=== PATIENT | female | born 1950 | race Caucasian/White ===

== ENCOUNTER → 2017-11-22 | Outpatient (CLI) | payer OTHER ==
[~2017-11-22] MED LIST: AZITTAB PO; HYCT PO
--- NOTE | 2017-11-22 16:05 | DIAGNOSTIC IMAGING REPORT ---
CHEST 2 VIEWS ROUTINE CLINICAL HISTORY: J18.9 PNEUMONIA, COUGH. RALES. COMPARISON STUDY: 07/28/2006 FINDINGS: The cardiac and mediastinal contours are normal. There is no evidence of focal pulmonary consolidation. There is no evidence of failure. No pleural effusions are visualized.[ IMPRESSION: No active disease in the chest. Electronically signed by: Rodríguez Buck M.D. 11/22/2017 4:04 PM Dictated Date/Time: 11/22/2017 4:04 PM
== END | disposition home or self-care (01) ==
LOC: C.RAD1850 15:36
PROVIDERS: ATTEND Physician Assistant
DX: J18.9 Pneumonia, unspecified organism (principal)

== ENCOUNTER 2020-08-02 19:48 | Inpatient (IN) ==
[2020-08-02] MEDS ORDERED: ONDANSETRON INJ 2 MG/ML 2 ML VIAL IV STA (19:58)
[2020-08-02] MEDS ORDERED: ACETAMINOPHEN 1000 MG/100 ML IV IV STA (19:58)
[2020-08-02] MEDS ORDERED: FAMOTIDINE 20MG/5ML IV PUSH IV STA (19:58)
[2020-08-02] MEDS ORDERED: MoRPHine SULFATE 2 MG/ML CARP IV PRN (19:58)
[2020-08-02] MEDS ORDERED: SODIUM CHLORIDE 0.9% 1000ML 1,000 ML IV SCH (20:00)
--- NOTE | 2020-08-02 20:04 | Emergency Department Note ---
Impression & Plan Precordial chest pain, RUQ abdominal pain, Acute cholecystitis, Leukocytosis ED Provider Note NAME: SANDRA WOODARD AGE: 70 SEX: F : 1950 ARRIVES VIA: Walk-In INFORMANT: [Patient] ED PROVIDER(S): [Pipo Palomino MD] CHIEF COMPLAINT: Chest pain HISTORY OF PRESENT ILLNESS: The patient is a 70-year-old female presents to the ED with chest pain that has been ongoing for almost 24 hours. The patient states the pain started as what she thought was reflux but has switched now to something she is not familiar with. The patient states the pain was initially burning but now it is more sharp. The pain is constant but there has been some come and go nature to the severity. The pain is an 8/10 at its worst. The pain does radiate to her back between her shoulder blades. She has had nausea and vomiting and some sweating. No shortness of breath. Patient tried to eat today but really had no appetite, she is not convinced eating made things worse. The patient does use Tums intermittently for heartburn, she has never had an episode like this before. She has no history of coronary disease. No history of known gallbladder disease. REVIEW OF SYSTEMS: See HPI for pertinent positives and negatives. A total of ten systems were rev iewed and were otherwise negative. PMHx/PSHx: See Below SOCIAL HISTORY: See Below. PHYSICAL EXAM: GENERAL: Patient is in no acute distress. HEENT: No acute trauma, normocephalic atraumatic, mucous membranes moist, no nasal congestion, no scleral icterus. NECK: No stridor, no adenopathy, no meningismus, trachea is midline. LUNGS: Clear to auscultation bilaterally, no wheeze, no rhonchi, breath sounds equal. HEART: 2/6 systolic murmur, mildly tachycardic, regular rhythm. ABDOMEN: Soft, moderately tender in the right upper quadrant, bowel sounds positive, no hernias, no peritonitis. EXTREMITIES: No cyanosis or edema, full range of motion of all the joints without pain or difficulty, no signs for acute trauma. NEUROLOGIC: Oriented x 3, no acute motor or sensory deficits, no focal weakness. SKIN: No rash, no jaundice, no diaphoresis. DIFFERENTIAL DIAGNOSIS: Cardiac ischemia, aortic dissection, pulmonary embolism, pneumothorax, pneumonia, pericarditis, myocarditis, esophageal rupture, GERD, biliary colic, cholecystitis, pancreatitis, musculoskeletal, as well as other pathologies. EMERGENCY DEPARTMENT COURSE/PROCEDURES: ECG: Indication was chest pain. The ECG shows a sinus tachycardia with a rate of 104. There is no ST elevation, no PVCs. The QTc is 478. A potential old septal infarct was noted. Continuous Cardiac Monitoring: An order was placed for continuous cardiac monitoring. The monitor shows a rate of 102 with sinus tachycardia. MEDICAL DECISION MAKING: There is a moderate leukocytosis at 18,000, this could be consistent with infection or just her pain. Hemoglobin was actually high at 17. There was a normal platelet count. No coagulopathy. No significant electrolyte abnormality or kidney failure. No evidence for liver enzyme elevation. No evidence for pancreatitis. ECG showed a sinus tachycardia, no acute ischemic change. Cardiac enzyme testing x1 was not consistent with acute cardiac injury. Chest film not show pneumonia or pneumothorax. There was no free air. Gallbladder ultrasound showed evidence for acute cholecystitis. Gallstones were present. The common bile duct was mildly elevated. On exam, the patient was quite tender in the right upper quadrant. She was not febrile, she was nontoxic. Patient received IV saline, 1 L. She was given IV Zofran, IV morphine, IV Pepcid and IV Tylenol. Patient received a dose of IV Zosyn. The patient has acute cholecystitis. I do think this explains her discomfort. Hospitalization is warranted. I did speak with the on-call surgeon who recommended a medical admission. I spoke to the patient at length about her findings, I talked with case management. The on-call hospitalist was consulted. Past Med/Surg History Medical History GERD (gastroesophageal reflux disease) Social History Smoking Status: Never smoker Feels Safe at Home: Yes Allergies Allergies Allergy/AdvReac Type Severity Reaction Status Date / Time No Known Allergies Allergy Mild Unverified 08/02/20 20:44 Home Meds Home Medications Medication Instructions Recorded Confirmed No Known Home Medications 08/02/20 08/02/20 Results & Data (ED) Vital Signs Vital Signs - 24 hr 08/02/20 19:49 08/02/20 21:29 08/02/20 23:00 Temperature 36.8 C Temperature Source Oral Pulse Rate 108 H Pulse Rate [Apical] 93 H 94 H Pulse Rhythm [Apical] Regular Respiratory Rate 18 16 16 Respiratory Effort / Characteristics Non-Labored Spontaneous Respiratory Depth Normal Normal Blood Pressure 193/89 H Blood Pressure [Left Arm] 144/96 H 144/96 H Blood Pressure Mean 123 Blood Pressure Mean [Left Arm] 112 112 Pulse Oximetry 99 97 97 Oxygen Delivery Method Room Air Room Air Sepsis Recent Fever Within 48 Hours No Sepsis New/Unexplained Change in Mental Status No Sepsis Action Taken by Nursing No Action Required Home Medications Current Medication List: was personally reviewed by me Laboratory Data Attestation: I reviewed the patient's lab results. Result diagrams: 08/02/20 20:10 08/02/20 20:10 Lab Results 08/02/20 08/02/20 08/02/20 Range/Units 20:10 20:10 20:10 WBC 18.14 H (4.8-10.8) K/uL RBC 4.87 (4.2-5.4) M/uL Hgb 17.0 H (12.0-16.0) g/dL Hct 47.8 H (37-47) % MCV 98.2 (80-100) fL MCH 34.9 H (25-34) pg MCHC 35.6 (32-36) g/dL RDW Std Deviation 47.3 H (36.4-46.3) fL RDW Coeff of Wendy 13.1 (11.5-14.5) % Plt Count 342 (130-400) K/uL MPV 9.1 (7.4-10.4) fL Immature Gran % (Auto) 0.2 % Neut % (Auto) 84.6 % Lymph % (Auto) 7.6 % Bosque % (Auto) 7.4 % Eos % (Auto) 0.1 % Baso % (Auto) 0.1 % Neut # (Auto) 15.34 H (1.4-6.5) K/uL Lymph # (Auto) 1.38 (1.2-3.4) K/uL Bosque # (Auto) 1.35 H (0.11-0.59) K/uL Eos # (Auto) 0.02 (0-0.5) K/uL Baso # (Auto) 0.01 (0-0.2) K/uL Immature Gran # (Auto) 0.04 H (0.00-0.02) K/uL PT 10.4 (9.0-12.0) Seconds INR 1.0 (0.9-1.1) APTT 26.7 (21.0-31.0) Seconds PTT Ratio 1.0 Sodium 138 (136-145) mmol/L Potassium 3.5 (3.5-5.1) mmol/L Chloride 103 (98-107) mmol/L Carbon Dioxide 25 (21-32) mmol/L Anion Gap 9.0 (3-11) BUN 13 (7-18) mg/dl Creatinine 1.00 (0.6-1.2) mg/dl Est Cr Clr Drug Dosing 50.1 ml/min Est GFR ( Amer) 65.2 Est GFR (Non-Af Amer) 56.2 BUN/Creatinine Ratio 12.7 (10-20) Glucose 164 H (70-99) mg/dl Calcium 10.0 (8.5-10.1) mg/dl Magnesium 2.0 (1.8-2.4) mg/dl Total Bilirubin 0.7 (0.2-1) mg/dl AST 21 (15-37) U/L ALT 23 (12-78) U/L Alkaline Phosphatase 85 (45-117) U/L Troponin I 0.029 (0-0.045) ng/ml Total Protein 9.1 H (6.4-8.2) gm/dl Albumin 4.1 (3.4-5.0) gm/dl Globulin 5.0 H (2.5-4.0) gm/dl Albumin/Globulin Ratio 0.8 L (0.9-2) Lipase 71 L (73-393) U/L Administered Medications Morphine Sulfate (Morphine Sulfate 2 Mg/Ml Carp) 2 mg IV Q30M PRN PRN Reason: Pain Stop: 08/16/20 19:57 Last Admin: 08/02/20 20:11 Dose: 2 mg Documented by: [id number] Discontinued Medications Acetaminophen (Acetaminophen 1000 Mg/100 Ml Iv) 1,000 mg IV NOW STA Stop: 08/02/20 19:59 Last Admin: 08/02/20 20:11 Dose: 1,000 mg Documented by: [id number] Famotidine (Famotidine 20mg/5ml Iv Push) 20 mg IV ONE STA Stop: 08/02/20 19:59 Last Admin: 08/02/20 20:11 Dose: 20 mg Documented by: [id number] Sodium Chloride (Nss 1000ml) 1,000 mls @ 999 mls/hr IV .Q1H1M RUDDY Stop: 08/02/20 21:00 Last Infusion: 08/02/20 21:55 Dose: 0 mls/hr Documented by: [id number] Admin: 08/02/20 20:11 Dose: 999 mls/hr Documented by: [id number] Piperacillin Sod/Tazobactam Sod (Zosyn) 4.5 gm in 120 mls @ 240 mls/hr IV NOW ONE Stop: 08/02/20 22:46 Last Infusion: 08/02/20 23:08 Dose: 0 mls/hr Documented by: [id number] Admin: 08/02/20 22:24 Dose: 240 mls/hr Documented by: [id number] Ondansetron HCl (Ondansetron Inj 2 Mg/Ml 2 Ml Vial) 4 mg IV NOW STA Stop: 08/02/20 19:59 Last Admin: 08/02/20 20:11 Dose: 4 mg Documented by: [id number] Imaging Data Attestation: I personally reviewed and interpreted this imaging study as follows: My Impression: Chest x-ray: There is no pneumonia, free air or mediastinal widening. The lungs appear clear. Radiologist's Impression: Gallbladder ultrasound: The pancreas appears unremarkable. There was a distended gallbladder containing multiple stones and sludge. There is mild gallbladder wall thickening and pericholecystic fluid. Findings are concerning for acute cholecystitis. There is a mildly dilated common bile duct at 8 mm. No choledocholithiasis identified. The right kidney did not show any hydronephrosis. There was no ascites. Blood Pressure Blood Pressure Findings: Elevated blood pressure Blood Pressure Disposition: further management by hospitalist Discharge Plan Visit Data Chief Complaint: Chest Pain Stated Complaint: CHEST PAIN, VOMITING ED Provider: Pipo Palomino Discharge Problem: Precordial chest pain, RUQ abdominal pain, Acute cholecystitis, Leukocytosis Patient Disposition: Admitted As Inpatient Condition: Good Forms Stand Alone Forms: My [facility] Prescriptions Prescriptions: No Action No Known Home Medications RF: 0 Referrals Referrals: Tara Villegas MD [Primary Care Provider] - Discharge Problem: Leukocytosis Qualifiers: Leukocytosis type: unspecified Qualified Code(s): D72.829 - Elevated white blood cell count, unspecified
[2020-08-02 20:22] LABS: Basophils # (auto) 0.01 K/uL (0-0.2); Basophils % (auto) 0.1 %; Eosinophils # (auto) 0.02 K/uL (0-0.5); Eosinophils % (auto) 0.1 %; Hematocrit (blood only) 47.8 % (37-47); Immature Granulocytes # (auto) 0.04 K/uL (0.00-0.02); Immature Granulocytes % (auto) 0.2 %; Lymphocytes # (auto) 1.38 K/uL (1.2-3.4); Lymphocytes % (auto) 7.6 %; Mean Corpuscular Hemoglobin 34.9 pg (25-34); Mean Corpuscular Hgb Conc 35.6 g/dL (32-36); Mean Corpuscular Volume 98.2 fL (80-100); Mean Platelet Volume 9.1 fL (7.4-10.4); Monocytes # (auto) 1.35 K/uL (0.11-0.59); Monocytes % (auto) 7.4 %; Neutrophils # (auto) 15.34 K/uL (1.4-6.5); Neutrophils % (auto) 84.6 %; Platelet Count 342 K/uL (130-400); RDW Coefficient of Variation 13.1 % (11.5-14.5); RDW Standard Deviation 47.3 fL (36.4-46.3); Red Blood Count 4.87 M/uL (4.2-5.4); White Blood Count 18.14 K/uL (4.8-10.8)
[2020-08-02 20:34] LABS: Partial Thromboplastin Time 26.7 Seconds (21.0-31.0); Prothrombin Time 10.4 Seconds (9.0-12.0)
[2020-08-02 20:44] LABS: Albumin Level 4.1 gm/dl (3.4-5.0); BUN Creatinine Ratio 12.7 (10-20); Creatinine Clr Calc Pharmacy 50.1 ml/min; Est GFR (African American) 65.2; Est GFR (Non-African American) 56.2; Potassium 3.5 mmol/L (3.5-5.1)
[2020-08-02 20:49] LABS: Albumin Globulin Ratio 0.8 (0.9-2); Bilirubin,Total 0.7 mg/dl (0.2-1); Total Protein 9.1 gm/dl (6.4-8.2); Troponin I 0.029 ng/ml (0-0.045)
[2020-08-02] MEDS ORDERED: PIPERACILL/TAZOBAC CONSULT ACTIVE PRN (22:17)
[2020-08-02] MEDS ORDERED: PIPERACILLIN/TAZOBACTAM 4.5 GM/120 ML BAG IV ONE (22:17)
--- NOTE | 2020-08-03 00:02 | History & Physical Report ---
Date of Service August 02, 2020 Assessment & Plan (1) Acute cholecystitis: Donna is a 70-year-old female with no past medical history and who takes no chronic medications who presents with 1 day of severe epigastric pain with slight radiation to her back following a barbecue at [facility]. Chest pain/epigastric pain suspect 2/2 acute cholecystitis Patient with intermittent episodes of 1 year of similar, less intense pain No EKG abnormalities, no shortness of breath. Troponin detectable, but normal. Will repeat x1 in a.m. At time of reassessment clinically asymptomatic without chest pain. Low suspicion for cardiac etiology, suspect due to gallbladder as below Leukocytosis to 18, ultrasound showing a distended gallbladder with 8 mm common bile duct dilation. Cholelithiasis present. Surgery consulted for lap anthony eval Given common bile duct involvement GI consult placed for ERCP evaluation Continue empiric Zosyn Preoperative COVID ordered N.p.o., NSS 125 cc/h while n.p.o. Zofran every 4 hours as needed Tylenol 650 every 4 hours for pain/fever Morphine scaled for breakthrough pain Famotidine 20 mg twice daily as needed for reflux CBC/CMP daily No clinical symptoms for COVID, preoperative COVID test ordered per protocol Daily alcohol use Patient endorses 1 to 2 glasses of wine per day alcohol intake Denies withdrawal symptoms, has gone for periods without alcohol when ill or away without tremors or difficulty - Follow clinically, defer AWSS at this time No other chronic medical problems FEN GI: N.p.o., NSS 125 DVT prophylaxis: Heparin 5000 twice daily, SCDs CODE STATUS: Full code Disposition: Med/surg (2) RUQ abdominal pain: (3) Leukocytosis: (4) Precordial chest pain: History of Present Illness Chief Complaint: Chest pain/epigastric pain Primary Care Provider: Tara Villegas MD Donna is a 70-year-old female with no past medical history and who takes no chronic medications who presents with 1 day of severe epigastric pain with slight radiation to her back following a barbecue at [facility]. Donna reports her pain began at 1130 last night, was epigastric, and had slight radiation to her back but no radiation to her shoulder. She had had dinner at a barbecue with grilled burgers and potato salad at [facility] earlier in the evening. She reports that she has had smaller episodes several times a month of indigestion which felt similar but much less severe and which normally improves somewhat with Tums. Her first episode was 1 year ago. None of these episodes have been associated with shortness of breath or radiation into her upper chest or shoulder. Has not had induction of symptoms with physical activity, and has not had the symptoms exacerbated by exercise. She endorses some intermittent loose bowels which in the last day have been looser with a greasy quality and a freight clerk davey color. She endorses feeling sweaty with this episode, has had nausea, an episode of yellow emesis, but no fever. Her pain is an 8/10 at admission and has improved greatly since receiving analgesics in the emergency department. She reports that in the last day she has not been able to drink much liquids because of the discomfort. Family history: Father with stroke at age 95, mother with CO at age 81, no family history of diabetes mellitus. Medical history: Reviewed, patient denies chronic medical problems or daily medications Allergies: No known drug allergies Social: Lives with her , independently ambulatory. No recent sick contacts. Denies tobacco product or vape use. Denies recreational drug use. Patient reports that she has a glass or 2 of wine every night, sometimes 23. She has gone without alcohol when she was feeling ill, and has not experienced tremors or symptoms of withdrawal in the past. CODE STATUS: Full code Allergies Allergy/AdvReac Type Severity Reaction Status Date / Time No Known Allergies Allergy Mild Unverified 08/02/20 20:44 Home Medications Home Medications Medication Instructions Recorded Confirmed Type No Known Home Medications 08/02/20 08/02/20 History Past Med/Surg History Medical History GERD (gastroesophageal reflux disease) Social History Smoking Status: Never smoker Feels Safe at Home: Yes Review of Systems Review of Systems: Constitutional: Denies fever, chills, malaise, weight change Eyes: No vision change ENT: No cold-like symptoms, no cough, no sore throat Cardiovascular: See HPI. Respiratory: Denies shortness of breath, cough, sputum production, difficulty breathing Gastrointestinal: See HPI Genitourinary: No dysuria Musculoskeletal: Denies weakness, muscle aches/pain, joint aches/pain Integumentary:Denies rash, lesions, bruising Physical Exam Physical Exam: General: A&Ox3. NAD. Cooperative. HEENT: Atraumatic, normocephalic. Pulls equal and reactive to light and accommodation. Intraocular movements grossly intact. Pulm: CTAB A&P. -wheezes, -rales, -rhonchi. Symmetrical chest rise. No increase work of breathing. No respiratory distress. Cardiac: RRR, -mrg. Radial pulses intact and symmetrical. Abdominal: Mildly tender at epigastrium, right upper quadrant. No rebound. nondistended, soft. BS present. Extremities: Intact, atraumatic. Warm and dry. Moving all extremities equally. Results & Data Results & Data ([facility]) Vital Signs (Past 12 Hours) Vital Signs Temp Pulse Pulse Resp BP BP Pulse Ox 08/02/20 23:00 94 H 16 144/96 H 97 08/02/20 21:29 93 H 16 144/96 H 97 08/02/20 19:49 36.8 C 108 H 18 193/89 H 99 Code Status & VTE Plan VTE Prophylaxis Plan VTE Prophylaxis will be ordered: Yes Supervising Physician Co-Signing Physician Notes Patient seen and examined, chart reviewed, case discussed with Dr. Olson and I agree with his assessment and plan as documented above. Briefly, patient is a 70yo C female presenting with acute cholecystitis, mild dilation of CBD. On exam she is afebrile, HD stable, NAD. Resting comfortably, pain improved Skin - no rash HEENT - NC/AT, anicteric sclera, MMM Heart - +S1/S2, regular, no m/r/g Lungs - CTA Abd - +tenderness in RUQ, abdomen soft, ND, no peritoneal signs Ext - No edema Labs and images reviewed Assessment/Plan - 70yo C female presenting with acute cholecystitis -Admit to medical floor -Continue Zosyn -Surgery consultation -Repeat labs in AM -GI evaluation for possible ERCP given CBD dilatation -Remainder of plan as above Resident Activity Tracking Resident Involvement: Resident Care Provided Care Provided: Adult [facility] Medicine (1) Leukocytosis Leukocytosis type: unspecified Qualified Code(s): D72.829 - Elevated white blood cell count, unspecified
[2020-08-03] MEDS ORDERED: MELATONIN 3 MG TAB PO STA (00:22)
[2020-08-03] MEDS ORDERED: ONDANSETRON INJ 2 MG/ML 2 ML VIAL IV PRN (01:03)
[2020-08-03] MEDS ORDERED: ACETAMINOPHEN 325 MG TAB PO PRN (01:03)
[2020-08-03] MEDS ORDERED: PIPERACILL/TAZOBAC CONSULT ACTIVE PRN (01:03)
[2020-08-03] MEDS ORDERED: MoRPHine SULFATE 2 MG/ML CARP IV PRN ×2 (01:03)
--- NOTE | 2020-08-03 01:06 | Billing Data ---
Date of Service August 03, 2020 Coding Level of Care Code 17784 Initial Inpt Care Lvl 3
[2020-08-03] MEDS: SODIUM CHLORIDE 0.9% 1000ML 1,000 ML IV SCH ×3 (01:58→20:17)
[2020-08-03] MEDS: PIPERACILLIN/TAZOBACTAM 3.375 GM in DEXTROSE 5% 100 ML IV SCH ×3 (04:28→20:17)
[2020-08-03 06:30] LABS: Basophils # (auto) 0.02 K/uL (0-0.2); Basophils % (auto) 0.2 %; Eosinophils % (auto) 0.8 %; Hematocrit (blood only) 40.8 % (37-47); Immature Granulocytes # (auto) 0.02 K/uL (0.00-0.02); Immature Granulocytes % (auto) 0.2 %; Lymphocytes # (auto) 3.07 K/uL (1.2-3.4); Lymphocytes % (auto) 24.3 %; Mean Corpuscular Hemoglobin 34.1 pg (25-34); Mean Corpuscular Hgb Conc 34.3 g/dL (32-36); Mean Corpuscular Volume 99.3 fL (80-100); Mean Platelet Volume 8.9 fL (7.4-10.4); Monocytes # (auto) 1.45 K/uL (0.11-0.59); Monocytes % (auto) 11.5 %; Neutrophils # (auto) 7.96 K/uL (1.4-6.5); Platelet Count 280 K/uL (130-400); RDW Coefficient of Variation 13.2 % (11.5-14.5); RDW Standard Deviation 47.7 fL (36.4-46.3); Red Blood Count 4.11 M/uL (4.2-5.4); White Blood Count 12.62 K/uL (4.8-10.8)
[2020-08-03 07:02] LABS: Albumin Globulin Ratio 0.8 (0.9-2); BUN Creatinine Ratio 12.3 (10-20); Bilirubin,Total 1.1 mg/dl (0.2-1); Calcium 8.1 mg/dl (8.5-10.1); Creatinine Clr Calc Pharmacy 55.4 ml/min; Est GFR (African American) 73.1; Globulin 3.7 gm/dl (2.5-4.0); Potassium 3.8 mmol/L (3.5-5.1); Total Protein 6.7 gm/dl (6.4-8.2); Troponin I 0.038 ng/ml (0-0.045)
[2020-08-03] MEDS ORDERED: LORazepam 0.5 MG TAB PO ONE (08:05)
--- NOTE | 2020-08-03 08:41 | XRay Report ---
XR chest 1V portable HISTORY: 70 years-old Female Chest Pain acute atypical chest pain COMPARISON: Chest radiograph 11/22/2017 TECHNIQUE: Portable AP view of the chest FINDINGS: Cardiomediastinal and hilar silhouettes are unchanged. Mild right hemidiaphragmatic elevation. No pne umothorax, pleural effusion or overt pulmonary edema. Ill-defined inferior lateral left lung [place] may reflect atelectasis versus trace effusion. Degenerative changes of the shoulders and spine. IMPRESSION: No acute process. ACT 112: Negative or not required by law. The above report was generated using voice recognition software. It may contain grammatical, syntax o r spelling errors. Electronically signed by: Wilton Herrera M.D. 08/03/2020 8:40 AM
--- NOTE | 2020-08-03 08:42 | Gastrointestinal Consultation ---
Date of Consultation August 03, 2020 Assessment & Plan (1) RUQ abdominal pain: Patient admitted with right-sided abdominal discomfort that began suddenly yesterday. Given the recurrent symptoms I wonder if she may have biliary colic. The imaging study shows evidence of stones within the gallbladder but appears to have a normal common bile duct (8 mm diameter). Given the slight dilation of the bile duct I would suggest further evaluation with an MRCP to see if the patient has a choledocholithiasis. If found to have choledocholithiasis we could certainly offer ERCP for biliary decompression if negative for choledocholithiasis perhaps the patient would be best served with a anthony cystectomy via general surgery Recommendations MRCP ordered Continue with antibiotic coverage Await surgical input Continue n.p.o. Call with any questions or concerns History of Present Illness Reason for Consultation: Abdominal discomfort Requesting Physician: Dr. De La Garza Attending Physician: Tabatha De La Garza MD History of Present Illness The patient is a 70-year-old female who presented to the emergency room for evaluation of right-sided discomfort. The patient notes that the symptoms did begin suddenly yesterday and have remitted since being given a dose of morphine. She notes that she has had similar episodes over the past several years but these typically resolve on their own without any interventions. The patient has normal-appearing liver enzymes but did present with leukocytosis. Imaging reveals cholelithiasis with an 8 mm common bile duct. She denies having nausea vomiting fevers chills or rigors at the present time. She denies having any difficulty with swallowing pain with swallowing and does not recall any surgical procedures in the past. Allergies Allergy/AdvReac Type Severity Reaction Status Date / Time No Known Allergies Allergy Mild Unverified 08/02/20 20:44 Home Medications Home Medications Medication Instructions Recorded Confirmed Type No Known Home Medications 08/02/20 08/02/20 History Patient History Medical History GERD (gastroesophageal reflux disease) Social History Smoking Status: Never smoker Second Hand Exposure: No; Hx Alcohol Use: Yes Alcohol type: wine Hx Substance Use: No Preferred Language: [place] Island[place] Communication Ability: Effective Fork Assembler Required: No Beliefs That Will Affect Care: None Current Living Situation: Spouse Current Living Situation Comment: lives with Feels Safe at Home: Yes Safety Concerns: Feels Safe At This Time Assistive Devices: Contacts and Glasses Review of Systems Constitutional: no sweats, no malaise and no weight loss Eyes: no diplopia Ear, Nose, Mouth, Throat: + ear pain and + nasal discharge; no mouth lesions Respiratory: no change in sputum and no hemoptysis Cardiovascular: no chest pain with activity and no dyspnea at rest Gastrointestinal: + abdominal pain; no early satiety Genitourinary: as per Subjective / HPI Musculoskeletal: no radicular pain Neurologic: no falls Psychiatric: no hopelessness Hematologic / Lymphatic: no coagulopathy Physical Exam Constitutional: well developed, well nourished and average body habitus; no acute distress and not ill appearing Eyes: PERRL, conjunctivae normal, anicteric sclerae Neck: trachea midline, no thyromegaly Respiratory: normal respiratory effort; no respiratory distress, no labored breathing and does not use accessory muscles Cardiovascular: Rate/Rhythm: regular rate and regular rhythm Extremities: no edema Gastrointestinal (Abdomen): Inspection/Auscultation: normal bowel sounds; abdomen not distended and no abdominal edema Results & Data ([facility]) Vital Signs (Past 12 Hours) Vital Signs Temp Pulse Pulse Pulse Resp BP BP 08/03/20 07:29 84 18 143/74 H 08/03/20 07:10 82 08/03/20 04:00 36.6 C 81 18 109/70 08/03/20 02:12 78 08/03/20 01:06 36.9 C 85 18 153/82 H 08/03/20 00:26 96 H 16 127/74 08/02/20 23:00 94 H 16 144/96 H 08/02/20 21:29 93 H 16 144/96 H Pulse Ox 08/03/20 07:29 95 08/03/20 07:10 08/03/20 04:00 96 08/03/20 02:12 08/03/20 01:06 98 08/03/20 00:26 97 08/02/20 23:00 97 08/02/20 21:29 97 Laboratory Results Laboratory Results - last 24 hr 08/02/20 08/02/20 08/02/20 20:10 20:10 20:10 WBC 18.14 H RBC 4.87 Hgb 17.0 H Hct 47.8 H MCV 98.2 MCH 34.9 H MCHC 35.6 RDW Std Deviation 47.3 H RDW Coeff of Wendy 13.1 Plt Count 342 MPV 9.1 Immature Gran % (Auto) 0.2 Neut % (Auto) 84.6 Lymph % (Auto) 7.6 [place] % (Auto) 7.4 Eos % (Auto) 0.1 Baso % (Auto) 0.1 Neut # (Auto) 15.34 H Lymph # (Auto) 1.38 [place] # (Auto) 1.35 H Eos # (Auto) 0.02 Baso # (Auto) 0.01 Immature Gran # (Auto) 0.04 H PT 10.4 INR 1.0 APTT 26.7 PTT Ratio 1.0 Sodium 138 Potassium 3.5 Chloride 103 Carbon Dioxide 25 Anion Gap 9.0 BUN 13 Creatinine 1.00 Est Cr Clr Drug Dosing 50.1 Est GFR ( Amer) 65.2 Est GFR (Non-Af Amer) 56.2 BUN/Creatinine Ratio 12.7 Glucose 164 H Calcium 10.0 Magnesium 2.0 Total Bilirubin 0.7 AST 21 ALT 23 Alkaline Phosphatase 85 Troponin I 0.029 Total Protein 9.1 H Albumin 4.1 Globulin 5.0 H Albumin/Globulin Ratio 0.8 L Lipase 71 L COVID-19 Eval Order SARS-CoV-2, RNA, NAAT 08/03/20 08/03/20 08/03/20 02:02 02:02 05:58 WBC 12.62 H RBC 4.11 L Hgb 14.0 D Hct 40.8 MCV 99.3 MCH 34.1 H MCHC 34.3 RDW Std Deviation 47.7 H RDW Coeff of Wendy 13.2 Plt Count 280 MPV 8.9 Immature Gran % (Auto) 0.2 Neut % (Auto) 63.0 Lymph % (Auto) 24.3 [place] % (Auto) 11.5 Eos % (Auto) 0.8 Baso % (Auto) 0.2 Neut # (Auto) 7.96 H Lymph # (Auto) 3.07 [place] # (Auto) 1.45 H Eos # (Auto) 0.10 Baso # (Auto) 0.02 Immature Gran # (Auto) 0.02 PT INR APTT PTT Ratio Sodium Potassium Chloride Carbon Dioxide Anion Gap BUN Creatinine Est Cr Clr Drug Dosing Est GFR ( Amer) Est GFR (Non-Af Amer) BUN/Creatinine Ratio Glucose Calcium Magnesium Total Bilirubin AST ALT Alkaline Phosphatase Troponin I Total Protein Albumin Globulin Albumin/Globulin Ratio Lipase COVID-19 Eval [facility] SARS-CoV-2, RNA, NAAT NEGATIVE 08/03/20 05:58 WBC RBC Hgb Hct MCV MCH MCHC RDW Std Deviation RDW Coeff of Wendy Plt Count MPV Immature Gran % (Auto) Neut % (Auto) Lymph % (Auto) [place] % (Auto) Eos % (Auto) Baso % (Auto) Neut # (Auto) Lymph # (Auto) [place] # (Auto) Eos # (Auto) Baso # (Auto) Immature Gran # (Auto) PT INR APTT PTT Ratio Sodium 142 Potassium 3.8 Chloride 109 H Carbon Dioxide 28 Anion Gap 5.0 BUN 11 Creatinine 0.91 Est Cr Clr Drug Dosing 55.4 Est GFR ( Amer) 73.1 Est GFR (Non-Af Amer) 63.0 BUN/Creatinine Ratio 12.3 Glucose 116 H Calcium 8.1 L D Magnesium Total Bilirubin 1.1 H D AST 45 H ALT 42 Alkaline Phosphatase 63 Troponin I 0.038 Total Protein 6.7 D Albumin 3.0 L Globulin 3.7 Albumin/Globulin Ratio 0.8 L Lipase COVID-19 Eval Order SARS-CoV-2, RNA, NAAT
--- NOTE | 2020-08-03 08:48 | Ultrasound Report ---
US gallbladder CLINICAL HISTORY: Right upper quadrant abdominal pain and vomiting. COMPARISON STUDY: No previous studies for comparison. FINDINGS: Liver is sonographically normal. There is mild biliary ductal dilatation. The common bile d uct measures 8 mm in caliber. No common bile duct calculi identified although the distal common bile duct is obscured. Gallbladder is moderately distended. There are numerous stones within the gallbladd er. There is gallbladder sludge. The gallbladder wall is thickened and edematous, measuring 4 mm in t hickness. Sonographic Hu sign could not be assessed for in this patient. Pancreas is unremarkable although the head and tail are slightly obscured. There is no right hydronephrosis. IMPRESSION: 1. Cholelithiasis, gallbladder distention and gallbladder wall thickening. The findings suggest acute cholecystitis. 2. Mild biliary ductal dilatation. No common bile duct calculi identified although distal common bile duct obscured. Findings could be correlated with obstructive liver function tests. ACT 112: Negative or not required by law. Electronically signed by: Jeff Mata M.D. 08/03/2020 8:47 AM
[2020-08-03] MEDS: HEPARIN SOD 5,000 UNIT/0.5 ML VIAL SQ SCH ×2 (10:11→20:24)
--- NOTE | 2020-08-03 12:15 | Magnetic Resonance Report ---
MR MRCP HISTORY: 70 years-old Female Eval for choledocholithiasis acute right upper quadrant abdominal pain with clinical concern for choledocholithiasis. COMPARISON: Abdominal ultrasound 08/02/2020 TECHNIQUE: MRCP without the use of IV contrast was obtained to institutional protocol. FINDINGS: Motion degraded exam. The imaged inferior cardiac chambers and lung bases are unremarkable. The visua lized spleen, pancreas and adrenal glands are unremarkable. Nonspecific perinephric stranding. No aor tic aneurysm or adenopathy. No bowel dilation. The soft tissues and bony structures appear unremarkab le. The gallbladder is stone filled and distended measuring up to 9 cm in length. Identified meniscal kishan dder wall thickening with trace pericholecystic fluid and edema which tracks along the right inferior pericolic gutter. Evaluation for choledocholithiasis is limited secondary to motion degradation. Com mon bile duct measures within the upper limits normal at 7 mm. There is no significant intrahepatic b iliary ductal dilation. There is questioned areas of beaded narrowing within the intrahepatic biliary tree. No definite choledocholithiasis identified. No pancreatic ductal dilation or pancreatic divisu m. IMPRESSION: 1. Motion degraded exam. 2. Distended stone filled gallbladder with edematous wall thickening and trace pericholecystic edema/ fluid which tracks along the right pericolic gutter is suggestive of acute cholecystitis. 3. The common bile duct measures within the upper limits of normal at 7 mm. No definite choledocholit hiasis identified. ACT 112: Negative or not required by law. The above report was generated using voice recognition software. It may contain grammatical, syntax o r spelling errors. Electronically signed by: Wilton Herrera M.D. 08/03/2020 12:13 PM
--- NOTE | 2020-08-03 13:12 | Communication Note ---
Date of Service: August 03, 2020 MRCP results reviewed this afternoon. The CBD is 7 mm without obvious filling defects, the gallbaldder has multiple stones. Recomendations: General surgery consultation to discuss cholecystectomy Please call with any questions, GI to sign off for the present.
--- NOTE | 2020-08-03 13:50 | Surgery Consultation ---
Date of Consultation August 03, 2020 Assessment & Plan (1) Acute cholecystitis: pt is a 70 year-old female who was admitted to hospital acute abdominal pain, IMP: acute cholecystitis, cholelithiasis, PLan, I recommend to do laparoscopic cholecystectomy, possible open or cholangiogram, D/W benefits, risks and alternatives of the surgery, the risks - infection, bleeding, injury CBD, may need ERCP, WA, pt and her understood, they agree with the surgery, I answered all questions, NPO after MN Present on Admission?: Yes (2) Cholelithiasis: Supervising Physician Co-Signing Physician Notes Patient seen and examined, chart reviewed, case discussed with Dr. Olson and I agree with his assessment and plan as documented above. Briefly, patient is a 70yo C female presenting with acute cholecystitis, mild dilation of CBD. On exam she is afebrile, HD stable, NAD. Resting comfortably, pain improved Skin - no rash HEENT - NC/AT, anicteric sclera, MMM Heart - +S1/S2, regular, no m/r/g Lungs - CTA Abd - +tenderness in RUQ, abdomen soft, ND, no peritoneal signs Ext - No edema Labs and images reviewed Assessment/Plan - 70yo C female presenting with acute cholecystitis -Admit to medical floor -Continue Zosyn -Surgery consultation -Repeat labs in AM -GI evaluation for possible ERCP given CBD dilatation -Remainder of plan as above History of Present Illness Attending Physician: Tabatha De La Garza MD History of Present Illness Chief Complaint: Chest pain/epigastric pain Primary Care Provider: Tara Villegas MD Donna is a 70-year-old female with no past medical history and who takes no chronic medications who presents with 1 day of severe epigastric pain with slight radiation to her back following a barbecue at [facility]. Donna reports her pain began at 1130 last night, was epigastric, and had slight radiation to her back but no radiation to her shoulder. She had had dinner at a barbecue with grilled burgers and potato salad at [facility] earlier in the evening. She reports that she has had smaller episodes several times a month of indigestion which felt similar but much less severe and which normally improves somewhat with Tums. Her first episode was 1 year ago. None of these episodes have been associated with shortness of breath or radiation into her upper chest or shoulder. Has not had induction of symptoms with physical activity, and has not had the symptoms exacerbated by exercise. She endorses some intermittent loose bowels which in the last day have been looser with a greasy quality and a auto phone installer davey color. She endorses feeling sweaty with this episode, has had nausea, an episode of yellow emesis, but no fever. Her pain is an 8/10 at admission and has improved greatly since receiving analgesics in the emergency department. She reports that in the last day she has not been able to drink much liquids because of the discomfort. I ( Martha Walsh MD ) got a call for consult acute cholecystitis, I reviewed pt's H/P, labs, U/S, MRCP with pt and her , Family history: Father with stroke at age 95, mother with WA at age 81, no family history of diabetes mellitus. Medical history: Reviewed, patient denies chronic medical problems or daily medications Allergies: No known drug allergies Social: Lives with her , independently ambulatory. No recent sick contacts. Denies tobacco product or vape use. Denies recreational drug use. Patient reports that she has a glass or 2 of wine every night, sometimes 23. She has gone without alcohol when she was feeling ill, and has not experienced tremors or symptoms of withdrawal in the past. CODE STATUS: Full code Allergies Allergy/AdvReac Type Severity Reaction Status Date / Time No Known Allergies Allergy Mild Unverified 08/02/20 20:44 Home Medications Home Medications Medication Instructions Recorded Confirmed Type No Known Home Medications 08/02/20 08/02/20 History Past Med/Surg History Medical History GERD (gastroesophageal reflux disease) Social History Smoking Status: Never smoker Feels Safe at Home: Yes Review of Systems Review of Systems: Constitutional: Denies fever, chills, malaise, weight change Eyes: No vision change ENT: No cold-like symptoms, no cough, no sore throat Cardiovascular: See HPI. Respiratory: Denies shortness of breath, cough, sputum production, difficulty breathing Gastrointestinal: See HPI Genitourinary: No dysuria Musculoskeletal: Denies weakness, muscle aches/pain, joint aches/pain Integumentary:Denies rash, lesions, bruising Allergies Allergy/AdvReac Type Severity Reaction Status Date / Time No Known Allergies Allergy Mild Unverified 08/02/20 20:44 Home Medications Home Medications Medication Instructions Recorded Confirmed Type No Known Home Medications 08/02/20 08/02/20 History Patient History Medical History GERD (gastroesophageal reflux disease) Social History Smoking Status: Never smoker Second Hand Exposure: No; Hx Alcohol Use: Yes Alcohol type: wine Hx Substance Use: No Preferred Language: Sinhala Communication Ability: Effective Pet Care Worker Required: No Beliefs That Will Affect Care: None Current Living Situation: Spouse Current Living Situation Comment: lives with Feels Safe at Home: Yes Safety Concerns: Feels Safe At This Time Assistive Devices: Contacts and Glasses Review of Systems Review of Systems: All systems reviewed & are unremarkable except as noted in HPI & below Constitutional: as per Subjective / HPI Eyes: as per Subjective / HPI Ear, Nose, Mouth, Throat: as per Subjective / HPI Respiratory: as per Subjective / HPI Cardiovascular: as per Subjective / HPI Gastrointestinal: as per Subjective / HPI Genitourinary: as per Subjective / HPI Musculoskeletal: as per Subjective / HPI Integumentary: as per Subjective / HPI Neurologic: as per Subjective / HPI Psychiatric: as per Subjective / HPI Endocrine: as per Subjective / HPI Hematologic / Lymphatic: as per Subjective / HPI Allergy / Immunological: as per Subjective / HPI Physical Exam Constitutional: WD/WN, vitals as above well developed and well nourished Eyes: PERRL, conjunctivae normal, anicteric sclerae ENMT: external ear and nose normal, oropharynx normal Neck: trachea midline, no thyromegaly Respiratory: normal respiratory effort, lungs clear to auscultation Cardiovascular: RRR, no murmur, no edema Rate/Rhythm: regular rate and regular rhythm Heart Sounds: normal S1 and normal S2 Gastrointestinal (Abdomen): soft, mild tenderness at RUQ, no rebound pain, BS + Musculoskeletal: no cyanosis or clubbing, extremities motor strength 5/5 Skin: no rashes, warm and dry Neurologic: patellar DTR's 2+ bilat, sensation intact Psychiatric: Orientation: alert and oriented x 3 Results & Data ([facility]) Vital Signs (Past 12 Hours) Vital Signs Temp Pulse Pulse Resp BP Pulse Ox 08/03/20 07:29 84 18 143/74 H 95 08/03/20 07:10 82 08/03/20 04:00 36.6 C 81 18 109/70 96 08/03/20 02:12 78 Laboratory Results Abnormal lab results 08/02/20 08/02/20 08/03/20 Range/Units 20:10 20:10 05:58 WBC 18.14 H 12.62 H (4.8-10.8) K/uL RBC 4.11 L (4.2-5.4) M/uL Hgb 17.0 H (12.0-16.0) g/dL Hct 47.8 H (37-47) % MCH 34.9 H 34.1 H (25-34) pg RDW Std Deviation 47.3 H 47.7 H (36.4-46.3) fL Neut # (Auto) 15.34 H 7.96 H (1.4-6.5) K/uL [place] # (Auto) 1.35 H 1.45 H (0.11-0.59) K/uL Immature Gran # (Auto) 0.04 H (0.00-0.02) K/uL Chloride (98-107) mmol/L Glucose 164 H (70-99) mg/dl Calcium (8.5-10.1) mg/dl Total Bilirubin (0.2-1) mg/dl AST (15-37) U/L Total Protein 9.1 H (6.4-8.2) gm/dl Albumin (3.4-5.0) gm/dl Globulin 5.0 H (2.5-4.0) gm/dl Albumin/Globulin Ratio 0.8 L (0.9-2) Lipase 71 L (73-393) U/L 08/03/20 Range/Units 05:58 WBC (4.8-10.8) K/uL RBC (4.2-5.4) M/uL Hgb (12.0-16.0) g/dL Hct (37-47) % MCH (25-34) pg RDW Std Deviation (36.4-46.3) fL Neut # (Auto) (1.4-6.5) K/uL [place] # (Auto) (0.11-0.59) K/uL Immature Gran # (Auto) (0.00-0.02) K/uL Chloride 109 H (98-107) mmol/L Glucose 116 H (70-99) mg/dl Calcium 8.1 L D (8.5-10.1) mg/dl Total Bilirubin 1.1 H D (0.2-1) mg/dl AST 45 H (15-37) U/L Total Protein (6.4-8.2) gm/dl Albumin 3.0 L (3.4-5.0) gm/dl Globulin (2.5-4.0) gm/dl Albumin/Globulin Ratio 0.8 L (0.9-2) Lipase (73-393) U/L Diagnostic Findings MR MRCP HISTORY: 70 years-old Female Eval for choledocholithiasis acute right upper quadrant abdominal pain with clinical concern for choledocholithiasis. COMPARISON: Abdominal ultrasound 08/02/2020 TECHNIQUE: MRCP without the use of IV contrast was obtained to institutional protocol. FINDINGS: Motion degraded exam. The imaged inferior cardiac chambers and lung bases are unremarkable. The visualized spleen, pancreas and adrenal glands are unremarkable. Nonspecific perinephric stranding. No aortic aneurysm or adenopathy. No bowel dilation. The soft tissues and bony structures appear unremarkable. The gallbladder is stone filled and distended measuring up to 9 cm in length. Identified meniscal bladder wall thickening with trace pericholecystic fluid and edema which tracks along the right inferior pericolic gutter. Evaluation for choledocholithiasis is limited secondary to motion degradation. Common bile duct measures within the upper limits normal at 7 mm. There is no significant intrahepatic biliary ductal dilation. There is questioned areas of beaded narrowing within the intrahepatic biliary tree. No definite choledocholithiasis identified. No pancreatic ductal dilation or pancreatic divisum. IMPRESSION: 1. Motion degraded exam. 2. Distended stone filled gallbladder with edematous wall thickening and trace pericholecystic edema/fluid which tracks along the right pericolic gutter is suggestive of acute cholecystitis. 3. The common bile duct measures within the upper limits of normal at 7 mm. No definite choledocholithiasis identified. US gallbladder CLINICAL HISTORY: Right upper quadrant abdominal pain and vomiting. COMPARISON STUDY: No previous studies for comparison. FINDINGS: Liver is sonographically normal. There is mild biliary ductal dilatation. The common bile duct measures 8 mm in caliber. No common bile duct calculi identified although the distal common bile duct is obscured. Gallbladder is moderately distended. There are numerous stones within the gallbladder. There is gallbladder sludge. The gallbladder wall is thickened and edematous, measuring 4 mm in thickness. Sonographic Hu sign could not be assessed for in this patient. Pancreas is unremarkable although the head and tail are slightly obscured. There is no right hydronephrosis. IMPRESSION: 1. Cholelithiasis, gallbladder distention and gallbladder wall thickening. The findings suggest acute cholecystitis. 2. Mild biliary ductal dilatation. No common bile duct calculi identified although distal common bile duct obscured. Findings could be correlated with obstructive liver function tests.
--- NOTE | 2020-08-03 16:07 | Hospitalist Progress Note ---
Date of Service August 03, 2020 Assessment & Plan Admission and Anticipated Discharge Date Admission Date: August 02, 2020 70-year-old female with no past medical history and who takes no chronic medications who presents with 1 day of severe epigastric pain with slight radiation to her back following a barbecue. Biliary colic with cholelithaisis. Patient with intermittent episodes of 1 year of similar, less intense pain Leukocytosis to 18 improved to 12.62, ultrasound showing a distended gallbladder with 8 mm common bile duct dilation. Cholelithiasis present. GI consulted - MRCP done - no stone in the ducts Surgery consulted with plan for Lap anthony 08/04 Continue empiric Zosyn Preoperative COVID negative liquid diet, n.p.o. after midnight Zofran every 4 hours as needed Tylenol 650 every 4 hours for pain/fever Morphine scaled for breakthrough pain Famotidine 20 mg twice daily as needed for reflux CBC/CMP daily Daily alcohol use Patient endorses 1 to 2 glasses of wine per day alcohol intake Denies withdrawal symptoms, has gone for periods without alcohol when ill or away without tremors or difficulty - Follow clinically, defer AWSS at this time No other chronic medical problems FEN GI: clear liquid diet, NPO after midnight DVT prophylaxis: Heparin 5,000 twice daily, SCDs CODE STATUS: Full code Disposition: Med/surg Supervising Physician Co-Signing Physician Notes Resident Physician Supervision Note: I independently interviewed and examined the patient and verified the werner history and physical, reviewed labs and image studies, discussed the case with the resident Dr. Saleem and agree with the findings and care plan. Subjective She was doing okay this morning. She was here with her who was at bedside. They brought up that she is claustrophobic and is nervous about the MRI. She normally takes 0.25 of Ativan prior to going on an airplane. We discussed that the MRCP would be the next step and from there we would have a better idea of potential management. She was willing to try 0.5 mg of Ativan prior to getting the MRI. Review of Systems Review of Systems: Constitutional: denies fevers, chills Cardiac: denies chest pain, palpitations Pulm: denies shortness of breath GI: admits pain, improved Physical Exam Constitutional: WD/WN, vitals as above Eyes: PERRL, conjunctivae normal, anicteric sclerae ENMT: external ear and nose normal, oropharynx normal Neck: normal visual inspection Respiratory: normal respiratory effort, lungs clear to auscultation Cardiovascular: RRR, no murmur, no edema Gastrointestinal (Abdomen): - soft - nTTP - normal active bowel sounds Skin: no rashes, warm and dry Psychiatric: Affect: + anxious affect Results & Data Results & Data ([facility]) Vital Signs (Past 12 Hours) Vital Signs Temp Pulse Pulse Resp BP Pulse Ox 08/03/20 07:29 84 18 143/74 H 95 08/03/20 07:10 82 08/03/20 04:00 36.6 C 81 18 109/70 96 08/03/20 02:12 78 CBC Results Results Complete Blood Count Results: RBC 3.66 M/uL (4.2-5.4) L 08/04/20 WBC 8.09 K/uL (4.8-10.8) 08/04/20 Hgb 12.0 g/dL (12.0-16.0) 08/04/20 Hct 37.2 % (37-47) 08/04/20 Plt Count 289 K/uL (130-400) 08/04/20 Chemistry (BMP) Results BMP Results: Sodium 145 mmol/L (136-145) 08/04/20 Potassium 3.4 mmol/L (3.5-5.1) L 08/04/20 Chloride 115 mmol/L (98-107) H 08/04/20 BUN 9 mg/dl (7-18) 08/04/20 Creatinine 0.85 mg/dl (0.6-1.2) 08/04/20 Glucose 96 mg/dl (70-99) 08/04/20 Resident Activity Tracking Resident Involvement: Resident Care Provided Care Provided: Adult [facility]
[2020-08-03] MEDS: MELATONIN 3 MG TAB PO PRN (21:15)
[2020-08-04] MEDS: SODIUM CHLORIDE 0.9% 1000ML 1,000 ML IV SCH ×2 (02:31→19:10)
[2020-08-04] MEDS: PIPERACILLIN/TAZOBACTAM 3.375 GM in DEXTROSE 5% 100 ML IV SCH ×3 (05:04→19:57)
[2020-08-04] MEDS ORDERED: fentaNYL citrate 100 MCG/2 ML VIAL ONE ×3 (07:00→10:06)
[2020-08-04] MEDS ORDERED: PROPOFOL IV EMULSION 10 MG/ML 20 ML VIAL IV ONE (07:04)
[2020-08-04] MEDS ORDERED: ROCURONIUM BROMIDE 10 MG/ML 5 ML VIAL IV ONE (07:04)
[2020-08-04] MEDS ORDERED: LIDOCAINE HCL 2% 2 ML VIAL/AMP(20MG/ML) INFIL ONE (07:04)
--- NOTE | 2020-08-04 07:26 | Anesthesiology Consultation ---
Date of Service August 04, 2020 Assessment & Plan (1) Encounter for pre-operative examination: Chart Review Chart Review: Acceptable Risk for Surgery Consults Requested none ASA ASA2 Proposed Anesthesia Anesthesia Type: General Risk / Benefits Reviewed With: PT / POA / Parent / Guardian, Accepts Plan and Informed Consent Obtained History Surgery Operation Date: 08/04/20 07:30 Proposed Procedures p Laparoscopic Cholecystectomy - Martha Walsh MD Height/Weight Height: 5 ft 4 in Weight: 75.1 kg Allergies Allergy/AdvReac Type Severity Reaction Status Date / Time No Known Allergies Allergy Mild Unverified 08/02/20 20:44 Medications Home Medications Medication Instructions Recorded Confirmed Last Taken No Known Home Medications 08/02/20 08/02/20 Unknown Active Medications Generic Name Dose Route Start Last Admin Trade Name Freq PRN Reason Stop Dose Admin Heparin Sodium (Porcine) 5,000 units 08/03/20 09:00 08/03/20 20:24 Heparin Sod 5,000 Unit/0.5 Ml Vial SQ 09/02/20 08:59 5,000 units Q12 RUDDY Administration Sodium Chloride 1,000 mls @ 125 mls/hr 08/03/20 01:03 08/04/20 02:31 Nss 1000ml IV 09/02/20 01:02 125 mls/hr .Q8H RUDDY Administration Piperacillin Sod/Tazobactam 115 mls @ 28.75 mls/hr 08/03/20 04:00 08/04/20 05:04 Sod 3.375 gm/ Dextrose IV 08/13/20 03:59 28.8 mls/hr Q8H RUDDY Administration Protocol Melatonin 3 mg 08/03/20 20:45 08/03/20 21:15 Melatonin 3 Mg Tab PO 09/02/20 20:44 3 mg HS PRN Administration Sleep NPO Date Last Intake of Fluids: 08/03/20 Time Last Intake of Fluids: 20:00 Date Last Intake of Solids: 08/03/20 Time Last Intake of Solids: 18:00 Past Medical History Medical History GERD (gastroesophageal reflux disease) Exercise / Class Metabolic Activity II 4-5 Yardwork/Stairs/Walk up hill Past Anesthesia History No Hx of Anesthesia Complications and No Family Hx of Anesthesia Complications History of PONV No Hx of PONV and No Hx of Motion Sickness Social History Smoking Status: Never smoker Hx Alcohol Use: Yes Alcohol type: wine alcohol intake frequency: 0-2 drinks per day Alcohol Intake Frequency Comment: 2-3 glasses a night Hx Substance Use: No Physical Exam Vital Signs Last Vital Signs Temp 98.2 F 08/04/20 04:11 Pulse 83 08/04/20 04:11 Resp 18 08/04/20 04:11 BP 121/75 08/04/20 04:11 Pulse Ox 94 08/04/20 04:11 ENMT Mouth: no dentition abnormality Thyromental Distance: > or= 3.5 Finger Breadths Mallampati Class: II Neck normal visual inspection Respiratory normal respiratory effort Auscultation: lungs clear to auscultation bilaterally Cardiovascular Rate/Rhythm: regular rate and regular rhythm Testing Laboratory Results 08/03/20 05:58 08/03/20 05:58 PT 10.4 Seconds (9.0-12.0) 08/02/20 20:10 INR 1.0 (0.9-1.1) 08/02/20 20:10 APTT 26.7 Seconds (21.0-31.0) 08/02/20 20:10 Electrocardiogram Date: 08/02/20 Sinus tachycardia, rate 104 bpm Possible Left atrial enlargement Septal infarct , age undetermined Abnormal ECG No previous ECGs available Chest X-Ray Date: 08/03/20 FINDINGS: Cardiomediastinal and hilar silhouettes are unchanged. Mild right hemidiaphragmatic elevation. No pneumothorax, pleural effusion or overt p ulmonary edema. Ill-defined inferior lateral left lung base opacity may reflect atelectasis versus trace effusion. Degenerative changes of the shoulders and spine. IMPRESSION: No acute process.
[2020-08-04] MEDS ORDERED: CEFAZOLIN 2000MG 2,000 MG/15 ML SYR IV ONE (07:42)
--- NOTE | 2020-08-04 07:42 | History & Physical Bridge Note ---
Date of Service August 04, 2020 History & Physical Bridge Note I have examined the patient, reviewed the History & Physical and in the interval since the performance of the History & Physical I have noted the following changes of clinical significance: no changes noted Supervising Physician Co-Signing Physician Notes Patient seen and examined, chart reviewed, case discussed with Dr. Olson and I agree with his assessment and plan as documented above. Briefly, patient is a 70yo C female presenting with acute cholecystitis, mild dilation of CBD. On exam she is afebrile, HD stable, NAD. Resting comfortably, pain improved Skin - no rash HEENT - NC/AT, anicteric sclera, MMM Heart - +S1/S2, regular, no m/r/g Lungs - CTA Abd - +tenderness in RUQ, abdomen soft, ND, no peritoneal signs Ext - No edema Labs and images reviewed Assessment/Plan - 70yo C female presenting with acute cholecystitis -Admit to medical floor -Continue Zosyn -Surgery consultation -Repeat labs in AM -GI evaluation for possible ERCP given CBD dilatation -Remainder of plan as above
[2020-08-04] MEDS ORDERED: ePHEDrine sulfate 50 MG/ML AMP IV PRN (07:43)
[2020-08-04] MEDS ORDERED: fentaNYL citrate 100 MCG/2 ML VIAL IV PRN (07:43)
[2020-08-04] MEDS ORDERED: ATROPINE SULFATE 0.1 MG/ML 10ML SYR IV PRN (07:43)
[2020-08-04] MEDS ORDERED: ONDANSETRON INJ 2 MG/ML 2 ML VIAL IV PRN (07:43)
[2020-08-04] MEDS ORDERED: SCOPOLAMINE 1.5 MG TDSY TD ONE (07:45)
[2020-08-04 07:46] LABS: Basophils # (auto) 0.03 K/uL (0-0.2); Basophils % (auto) 0.4 %; Eosinophils # (auto) 0.47 K/uL (0-0.5); Eosinophils % (auto) 5.8 %; Hematocrit (blood only) 37.2 % (37-47); Immature Granulocytes # (auto) 0.01 K/uL (0.00-0.02); Immature Granulocytes % (auto) 0.1 %; Lymphocytes # (auto) 3.02 K/uL (1.2-3.4); Lymphocytes % (auto) 37.3 %; Mean Corpuscular Hemoglobin 32.8 pg (25-34); Mean Corpuscular Hgb Conc 32.3 g/dL (32-36); Mean Corpuscular Volume 101.6 fL (80-100); Mean Platelet Volume 9.1 fL (7.4-10.4); Monocytes % (auto) 11.1 %; Neutrophils # (auto) 3.66 K/uL (1.4-6.5); Neutrophils % (auto) 45.3 %; Platelet Count 289 K/uL (130-400); RDW Coefficient of Variation 13.5 % (11.5-14.5); Red Blood Count 3.66 M/uL (4.2-5.4); White Blood Count 8.09 K/uL (4.8-10.8)
[2020-08-04] MEDS ORDERED: BUPIVACAINE 0.5 % 5 MG/1 ML MPF 30ML VIAL ONE (07:46)
[2020-08-04] MEDS ORDERED: LIDOCAINE HCL 1% 20 ML VIAL ONE (07:46)
[2020-08-04] MEDS ORDERED: BACITRACIN OINT 15 GM TUBE ONE (07:46)
[2020-08-04] MEDS ORDERED: DEXAMETHASONE SOD INJ 4 MG/ML VIAL ONE (08:02)
[2020-08-04] MEDS ORDERED: ONDANSETRON INJ 2 MG/ML 2 ML VIAL ONE (08:02)
[2020-08-04 08:15] LABS: Albumin Level 2.6 gm/dl (3.4-5.0); Creatinine Clr Calc Pharmacy 59.4 ml/min; Est GFR (African American) 79.3; Est GFR (Non-African American) 68.5; Potassium 3.4 mmol/L (3.5-5.1)
[2020-08-04 08:18] LABS: Albumin Globulin Ratio 0.8 (0.9-2); Bilirubin,Total 0.6 mg/dl (0.2-1); Globulin 3.4 gm/dl (2.5-4.0)
--- NOTE | 2020-08-04 08:25 | Electrocardiogram Report ---
Test Reason : Blood Pressure : / mmHG Vent. Rate : 104 BPM Atrial Rate : 104 BPM P-R Int : 138 ms QRS Dur : 078 ms QT Int : 364 ms P-R-T Axes : 048 045 071 degrees QTc Int : 478 ms Sinus tachycardia Possible Left atrial enlargement Septal infarct , age undetermined Abnormal ECG No previous ECGs available Confirmed by Sam Velasquez ([id number]) on 08/04/2020 8:25:14 AM Referred By: REFERRED SELF Confirmed By:Sam Velasquez
--- NOTE | 2020-08-04 09:36 | Post Operative Brief Note ---
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
[2020-08-04] MEDS ORDERED: NEOSTIGMINE METHYLSULFATE 5 MG/5 ML SYR ONE (09:41)
[2020-08-04] MEDS ORDERED: GLYCOPYRROLATE 0.2 MG/ML VIAL ONE (09:41)
--- NOTE | 2020-08-04 10:19 | Anesthesiology Progress Note ---
Date of Service August 04, 2020 Anesthesia Post Procedure Vital Signs Vital Signs: Temp Pulse Pulse Pulse Resp BP BP 08/04/20 10:15 74 16 116/64 08/04/20 10:05 80 20 137/69 08/04/20 09:55 86 18 113/86 08/04/20 09:46 98.2 F 95 H 20 129/69 08/04/20 07:52 97.7 F 81 18 125/79 08/04/20 04:11 98.2 F 83 18 121/75 08/03/20 23:00 98.6 F 73 18 125/82 08/03/20 19:00 97.9 F 96 H 18 140/82 08/03/20 15:21 98.2 F 93 H 18 120/73 08/03/20 15:17 99 H Pulse Ox 08/04/20 10:15 94 08/04/20 10:05 94 08/04/20 09:55 95 08/04/20 09:46 95 08/04/20 07:52 95 08/04/20 04:11 94 08/03/20 23:00 94 08/03/20 19:00 98 08/03/20 15:21 95 08/03/20 15:17 Pain Intensity Chest: Pain Intensity: 5 Abdomen: Pain Intensity: 3 Transfer of Care Handoff Completed per policy Notes Mental Status: alert / awake / arousable and participated in evaluation Patient Amnestic to Procedure: Yes Nausea / Vomiting: adequately controlled Pain: adequately controlled Airway Patency, RR, SpO2: stable & adequate BP & HR: stable & adequate Hydration State: stable & adequate Anesthetic Complications: no major complications apparent and Pt Satisfied with anesthetic care
[2020-08-04] MEDS: LACTATED RINGER'S 1,000 ML IV SCH ×2 (11:32→23:21)
--- NOTE | 2020-08-04 13:34 | Operative Report (OR) ---
DATE OF OPERATION: 08/04/2020 PREOPERATIVE DIAGNOSES: Acute cholecystitis, cholelithiasis. POSTOPERATIVE DIAGNOSES: Acute cholecystitis, cholelithiasis. OPERATIVE PROCEDURE: Laparoscopic cholecystectomy. SURGEON: Martha Walsh MD. ANESTHESIA: General. ESTIMATED BLOOD LOSS: About 10 mL. FINDINGS: Acute cholecystitis with significant inflammation on the gallbladder wall, gallbladder wall thickening and edema with multiple gallstones. COMPLICATIONS: None. INDICATIONS FOR THE PROCEDURE: This is a 70-year-old female who was admitted to the hospital for acute cholecystitis and the patient is required to do laparoscopic cholecystectomy, possible open, possible cholangiogram. I did talk to the patient about the benefit, the risk, alternate procedure. I indicated the risks may include but not limited to such as bleeding, infection, injury to common bile duct, bile leak, may need ERCP, myocardial infarction. The patient and the patient's understand. They agreed to proceed with the procedure. The patient signed informed consent and I answered all questions. DETAILS OF PROCEDURE: We brought the patient to the OR, put the patient in the supine position. The patient received SCD on bilateral legs to prevent DVT. Also, patient received 3.375 grams of Zosyn IV for prophylactic antibiotic. The patient received general anesthesia without difficulty. The abdomen was prepped and draped in routine sterile fashion. After time-out, I injected local anesthesia by using 1% lidocaine mixed with 0.5% Marcaine just above the umbilicus. Then I made a small incision just above the umbilicus, opened fascia and opened peritoneum under direct vision, put a Elicia trocar in, connected to CO2 to create pneumoperitoneum, flow rate at 6 liters per minute, pressure not more than 14 mmHg. Once we got a nice pneumoperitoneum, we put the camera in, looked around the abdomen, it shows normal finding on the liver. However, the gallbladder showed significant distention with gallbladder wall thickening, edema, significant inflammation on the gallbladder wall, confirmed the diagnosis of acute cholecystitis. Then, we put another two 5 mm trocars in the right upper quadrant, one 11 trocar in the epigastric area. Once all trocars in, we used a grasper to hold the gallbladder, put in the direction to the diaphragm and used another grasper to hold the pouch of gallbladder, put a lateral. At this moment, we used the Bovie to take down all the omental fat adhesion to the gallbladder. Then, we got a critical view of the Calot triangle. The cystic duct was identified and mobilized. The cystic duct has significant dilatation about 8 mm. Then I chose 10 mm metal clips, clipped the proximal cystic duct x2 and another metal clip to clip the distal cystic duct. I then used a scissor for transection of cystic duct. Rechecked and no bile leak. The cystic artery was identified and mobilized. I put two 10 mm metal clips on the proximal cystic artery, one on the distal cystic artery and used a scissor for transection of cystic artery. Rechecked, no active bleeding. Then we used the Bovie to take down gallbladder from the liver bed. Rechecked and no active bleeding, no bile leak from the liver bed. Then we removed gallbladder through the catcher bag. Then, we reinserted the Elicia trocar in, connected to CO2 to create pneumoperitoneum, again looked around the abdomen, no active bleeding, no bile leak from the liver bed. Then we removed all trocars under direct vision. No active bleeding from the trocar sites. Pneumoperitoneum was released, now closed the umbilical incision fascial layer by using #1 Vicryl [id number] x2, closed subcutaneous layer by using 2-0 Vicryl interruptedly, closed skin by using 4-0 Vicryl continuous running, closed the epigastric area incision, fascial layer by using #1 Vicryl [id number] x2, closed subcutaneous layer by using 2-0 Vicryl interruptedly, closed skin by using 4-0 Vicryl interruptedly, closed another two 5 mm trocar site skin only by using 4-0 Vicryl. Then, we put the dressing on. The patient tolerated the procedure well. All instrument, needle and sponge count were correct x2 at the end of the case. The patient was transferred to recovery room in stable condition. The specimen was sent to pathology. After the procedure, I did talk to the patient's about the OR finding and the procedure we did, he understands. I attest to the content of the Intraoperative Record and any orders documented therein. Any exception s are noted below.
[2020-08-04] MEDS: OXYCODONE/ACETAMINOPHEN 5mg/325mg TAB PO PRN ×2 (13:52→20:06)
[2020-08-04] MEDS: HEPARIN SOD 5,000 UNIT/0.5 ML VIAL SQ SCH (19:11)
--- NOTE | 2020-08-04 19:51 | Hospitalist Progress Note ---
Date of Service August 04, 2020 Assessment & Plan Admission and Anticipated Discharge Date Admission Date: August 02, 2020 70-year-old female with no past medical history and who takes no chronic medications who presents with 1 day of severe epigastric pain with slight radiation to her back following a barbecue. Biliary colic with cholelithiasis s/p cholecystectomy. Patient with intermittent episodes of 1 year of similar, less intense pain Ultrasound showing a distended gallbladder with 8 mm common bile duct dilation. Cholelithiasis present. GI consulted - MRCP done - no stone in the ducts Surgery consulted s/p anthony 08/04 Continue empiric Zosyn, consider transition to oral abx. Preoperative COVID negative advancing diet Zofran every 4 hours as needed Tylenol 650 every 4 hours for pain/fever Morphine scaled for breakthrough pain Famotidine 20 mg twice daily as needed for reflux CBC/CMP daily Daily alcohol use Patient endorses 1 to 2 glasses of wine per day alcohol intake Denies withdrawal symptoms, has gone for periods without alcohol when ill or away without tremors or difficulty - Follow clinically, defer AWSS at this time No other chronic medical problems FEN GI: advance diet as tolerated DVT prophylaxis: Heparin 5,000 twice daily, SCDs CODE STATUS: Full code Disposition: Med/surg Supervising Physician Co-Signing Physician Notes Resident Physician Supervision Note: I independently interviewed and examined the patient and verified the werner history and physical, reviewed labs and image studies, discussed the case with the resident Dr. Saleem and agree with the findings and care plan. Subjective Doing well today, she had not passed gas in the afternoon when she was back from surgery. Review of Systems Review of Systems: Constitutional: denies fevers, chills Cardiac: denies chest pain, palpitations Pulm: denies cough, shortness of breath GI: denies nausea, vomiting Physical Exam Physical Exam: Constitutional WD/WN, vitals as above Eyes PERRL, conjunctivae normal, anicteric sclerae ENMT external ear and nose normal, oropharynx normal Neck normal visual inspection Respiratory normal respiratory effort, lungs clear to auscultation Cardiovascular RRR, no murmur, no edema Gastrointestinal (Abdomen) - soft - nTTP - normal active bowel sounds Skin no rashes, warm and dry Psychiatric Affect: + anxious affect Results & Data Results & Data ([facility]) Vital Signs (Past 12 Hours) Vital Signs Temp Pulse Pulse Resp BP BP Pulse Ox 08/04/20 13:28 36.7 C 84 18 147/83 H 99 08/04/20 12:25 36.4 C L 84 18 138/80 98 08/04/20 11:54 36.5 C 79 18 138/81 98 08/04/20 11:27 36.3 C L 85 18 136/79 99 08/04/20 11:05 36.6 C 79 18 141/71 H 98 08/04/20 10:50 36.5 C 82 18 136/69 97 08/04/20 10:25 36.5 C 72 18 138/72 96 08/04/20 10:15 74 16 116/64 94 08/04/20 10:05 80 20 137/69 94 08/04/20 09:55 86 18 113/86 95 08/04/20 09:46 36.8 C 95 H 20 129/69 95 08/04/20 07:52 36.5 C 81 18 125/79 95 08/04/20 04:11 36.8 C 83 18 121/75 94 CBC Results Results Complete Blood Count Results: RBC 3.66 M/uL (4.2-5.4) L 08/04/20 WBC 8.09 K/uL (4.8-10.8) 08/04/20 Hgb 12.0 g/dL (12.0-16.0) 08/04/20 Hct 37.2 % (37-47) 08/04/20 Plt Count 289 K/uL (130-400) 08/04/20 Chemistry (BMP) Results BMP Results: Sodium 145 mmol/L (136-145) 08/04/20 Potassium 3.4 mmol/L (3.5-5.1) L 08/04/20 Chloride 115 mmol/L (98-107) H 08/04/20 BUN 9 mg/dl (7-18) 08/04/20 Creatinine 0.85 mg/dl (0.6-1.2) 08/04/20 Glucose 96 mg/dl (70-99) 08/04/20 Resident Activity Tracking Resident Involvement: Resident Care Provided Care Provided: Adult [facility]
[2020-08-04] MEDS: MELATONIN 3 MG TAB PO PRN (21:51)
[2020-08-05] MEDS: PIPERACILLIN/TAZOBACTAM 3.375 GM in DEXTROSE 5% 100 ML IV SCH (04:13)
[2020-08-05 08:03] LABS: Basophils # (auto) 0.02 K/uL (0-0.2); Basophils % (auto) 0.2 %; Eosinophils % (auto) 1.1 %; Hematocrit (blood only) 37.2 % (37-47); Hemoglobin 12.5 g/dL (12.0-16.0); Immature Granulocytes # (auto) 0.01 K/uL (0.00-0.02); Immature Granulocytes % (auto) 0.1 %; Lymphocytes # (auto) 2.84 K/uL (1.2-3.4); Lymphocytes % (auto) 31.5 %; Mean Corpuscular Hemoglobin 33.4 pg (25-34); Mean Corpuscular Hgb Conc 33.6 g/dL (32-36); Mean Corpuscular Volume 99.5 fL (80-100); Mean Platelet Volume 9.1 fL (7.4-10.4); Monocytes # (auto) 1.11 K/uL (0.11-0.59); Monocytes % (auto) 12.3 %; Neutrophils # (auto) 4.93 K/uL (1.4-6.5); Neutrophils % (auto) 54.8 %; Platelet Count 271 K/uL (130-400); RDW Coefficient of Variation 13.3 % (11.5-14.5); RDW Standard Deviation 48.1 fL (36.4-46.3); Red Blood Count 3.74 M/uL (4.2-5.4); White Blood Count 9.01 K/uL (4.8-10.8)
[2020-08-05 08:34] LABS: Albumin Level 2.8 gm/dl (3.4-5.0); BUN Creatinine Ratio 9.2 (10-20); Calcium 8.8 mg/dl (8.5-10.1); Creatinine Clr Calc Pharmacy 64.2 ml/min; Est GFR (African American) 85.4; Est GFR (Non-African American) 73.7; Potassium 3.1 mmol/L (3.5-5.1)
[2020-08-05 08:37] LABS: Albumin Globulin Ratio 0.7 (0.9-2); Bilirubin,Total 0.6 mg/dl (0.2-1); Globulin 3.8 gm/dl (2.5-4.0); Total Protein 6.6 gm/dl (6.4-8.2)
[2020-08-05] MEDS ORDERED: ENOXAPARIN INJ 40 MG/0.4 ML SYR SQ SCH (09:00)
[2020-08-05] MEDS: OXYCODONE/ACETAMINOPHEN 5mg/325mg TAB PO PRN (09:37)
[2020-08-05] MEDS ORDERED: POTASSIUM CHLORIDE 20 MEQ TABCR PO SCH (09:45)
--- NOTE | 2020-08-05 11:06 | Surgery Progress Note ---
Date of Service doing fine, no significant abdominal pain, no nausea, no vomiting, no fever, August 05, 2020 Assessment & Plan (1) Acute cholecystitis: pt is a 70 year-old female who was admitted to hospital acute abdominal pain, IMP: acute cholecystitis, cholelithiasis, PLan, I recommend to do laparoscopic cholecystectomy, possible open or cholangiogram, D/W benefits, risks and alternatives of the surgery, the risks - infection, bleeding, injury CBD, may need ERCP, CO, pt and her understood, they agree with the surgery, I answered all questions, NPO after MN 08/05/2020, 11:03AM POD 1 doing fine, pt can discharged home today, keep the dressing on for 4 days, she can take a shower on 08/09/2020, no heavy lifting > 25 LBS for 4 weeks, F/U me in 2 weeks, (2) Cholelithiasis: Admission and Anticipated Discharge Date Admission Date: August 02, 2020 Supervising Physician Co-Signing Physician Notes Resident Physician Supervision Note: I independently interviewed and examined the patient and verified the werner history and physical, reviewed labs and image studies, discussed the case with the resident Dr. Saleem and agree with the findings and care plan. Subjective Doing well today, she had not passed gas in the afternoon when she was back from surgery. Review of Systems Constitutional: as per Subjective / HPI Eyes: as per Subjective / HPI Ear, Nose, Mouth, Throat: as per Subjective / HPI Respiratory: as per Subjective / HPI Cardiovascular: as per Subjective / HPI Gastrointestinal: as per Subjective / HPI Genitourinary: as per Subjective / HPI Musculoskeletal: as per Subjective / HPI Integumentary: as per Subjective / HPI Neurologic: as per Subjective / HPI Psychiatric: as per Subjective / HPI Endocrine: as per Subjective / HPI Hematologic / Lymphatic: as per Subjective / HPI Allergy / Immunological: as per Subjective / HPI Physical Exam Constitutional: WD/WN, vitals as above well developed and well nourished Eyes: PERRL, conjunctivae normal, anicteric sclerae ENMT: external ear and nose normal, oropharynx normal Neck: trachea midline, no thyromegaly Respiratory: normal respiratory effort, lungs clear to auscultation Cardiovascular: RRR, no murmur, no edema Rate/Rhythm: regular rate and regular rhythm Heart Sounds: normal S1 and normal S2 Gastrointestinal (Abdomen): normal bowel sounds, soft, nontender, no hepatosplenomegaly soft, mild incision pain, no distend, BS +, all incision intact, no redness, Musculoskeletal: no cyanosis or clubbing, extremities motor strength 5/5 Skin: no rashes, warm and dry Neurologic: patellar DTR's 2+ bilat, sensation intact Psychiatric: Orientation: alert and oriented x 3 Results & Data ([facility]) Vital Signs (Past 12 Hours) Vital Signs Temp Pulse Pulse Resp BP BP Pulse Ox 08/05/20 10:45 74 08/05/20 08:09 36.8 C 89 16 170/81 H 93 08/05/20 05:01 36.9 C 85 18 169/92 H 95 08/05/20 00:00 36.8 C 92 H 18 121/73 93 08/04/20 23:46 95 H Laboratory Results Abnormal lab results 08/05/20 08/05/20 Range/Units 07:38 07:38 RBC 3.74 L (4.2-5.4) M/uL RDW Std Deviation 48.1 H (36.4-46.3) fL [place] # (Auto) 1.11 H (0.11-0.59) K/uL Potassium 3.1 L (3.5-5.1) mmol/L Chloride 111 H (98-107) mmol/L BUN/Creatinine Ratio 9.2 L (10-20) Glucose 101 H (70-99) mg/dl AST 97 H (15-37) U/L ALT 149 H (12-78) U/L Albumin 2.8 L (3.4-5.0) gm/dl Albumin/Globulin Ratio 0.7 L (0.9-2)
[2020-08-05] MEDS ORDERED: AMOXICILLIN/CLAVULANATE 875 MG TAB PO SCH (12:00)
--- NOTE | 2020-08-05 13:23 | Discharge Summary ---
Date of Service August 05, 2020 Admission HPI Per Admitting Provider Donna is a 70-year-old female with no past medical history and who takes no chronic medications who presents with 1 day of severe epigastric pain with slight radiation to her back following a barbecue at [facility] [place]. Donna reports her pain began at 1130 last night, was epigastric, and had slight radiation to her back but no radiation to her shoulder. She had had dinner at a barbecue with grilled burgers and potato salad at [facility] earlier in the evening. She reports that she has had smaller episodes several times a month of indigestion which felt similar but much less severe and which normally improves somewhat with Tums. Her first episode was 1 year ago. None of these episodes have been associated with shortness of breath or radiation into her upper chest or shoulder. Has not had induction of symptoms with physical activity, and has not had the symptoms exacerbated by exercise. She endorses some intermittent loose bowels which in the last day have been looser with a greasy quality and a behavior specialist davey color. She endorses feeling sweaty with this episode, has had nausea, an episode of yellow emesis, but no fever. Her pain is an 8/10 at admission and has improved greatly since receiving analgesics in the emergency department. She reports that in the last day she has not been able to drink much liquids because of the discomfort. Family history: Father with stroke at age 95, mother with [place] at age 81, no family history of diabetes mellitus. Medical history: Reviewed, patient denies chronic medical problems or daily medications Allergies: No known drug allergies Social: Lives with her , independently ambulatory. No recent sick contacts. Denies tobacco product or vape use. Denies recreational drug use. Patient reports that she has a glass or 2 of wine every night, sometimes 23. She has gone without alcohol when she was feeling ill, and has not experienced tremors or symptoms of withdrawal in the past. CODE STATUS: Full code Principal Diagnosis Cholecystitis Discharge Exam Constitutional WD/WN, vitals as above Eyes PERRL, conjunctivae normal, anicteric sclerae ENMT external ear and nose normal, oropharynx normal Respiratory normal respiratory effort, lungs clear to auscultation Cardiovascular RRR, no murmur, no edema Gastrointestinal (Abdomen) normal bowel sounds, soft, nontender, no hepatosplenomegaly Musculoskeletal no cyanosis or clubbing, extremities motor strength 5/5 Skin no rashes, warm and dry Psychiatric A+Ox3, euthymic affect Discharge Data Allergies Allergy/AdvReac Type Severity Reaction Status Date / Time No Known Allergies Allergy Mild Unverified 08/02/20 20:44 Consultations 08/02/20 22:26 ED Decision to Admit Stat 08/03/20 01:03 Consult Gastroenterology Routine Consult General Surgery Routine Procedures Performed Operation Date: 08/04/20 07:30 Actual Procedures p Laparoscopic Cholecystectomy(Not Applicable) - Martha Walsh MD Ordered Studies 08/02/20 19:58 US gallbladder Stat 08/03/20 06:59 MR MRCP Stat Hospital Course (1) Acute cholecystitis: Donna is a 70y/o F w/ no PMH and who takes no chronic medications who presents with 1 day of severe epigastric pain with slight radiation to her back following a barbecue at [facility] [place]. Acute cholecystitis: Surgery consulted for lap anthony eval Given common bile duct involvement GI consult placed for ERCP evaluation Continue Augmentin 875mg BID for additional 5 days Tylenol 650 every 4 hours for pain/fever Total Time Total Time Spent Total Time Spent (In Minutes): <30 Discharge Plan Discharge Items Patient Disposition: Home - Self-Care Reason For Visit: CHEST/EPIGASTRIC PAIN, CHOLELITHIASIS Discharge Diagnosis: cholecystitis Condition on Discharge: Good Activity: Per Instructions section Non-emergency contact: Primary Care Provider and Surgeon Call non-emergency contact if: you have any medication questions, your symptoms worsen and your pain is not controlled Follow-up/Referrals: Tara Villegas MD [Primary Care Provider] - 08/07/20 12:50 pm Martha Walsh MD [Physician] - Diet: Regular Addtl Attending Provider Instructions: Per Dr Walsh: -no lifting more than 25lbs for 4 weeks -OK to shower starting 08/09/20 -keep dressings on for 4 days then OK to remove -steri-strips will fall off on their own -finish out another 5 days of augmentin (10 pills total) next dose tonight at bedtime -have your PCP check labwork (CMP) next week to follow everything back to normal Pending Studies at Discharge: No Stand-Alone Forms: My [employer], Smoking Cessation Medications and DC Order Prescriptions: New amoxicillin-pot clavulanate [Augmentin] 875-125 mg Tablet 1 tab PO BIDM Qty: 10 RF: 0 No Action No Known Home Medications RF: 0 Discharge Orders: Discharge Order (Routine); Ordered 08/05/20 Ordered By: Fer Caputo Admission Data Admit Date/Time: 08/02/20 23:43 Attending Provider: Fer Caputo Admit Provider: Harry Olson Primary Care Provider: Tara Villegas Other Providers: Dayana Sánchez ; Renny Lawrence ; Martha Walsh ; Tabatha De La Garza Other Interventions: Discharge Summary Assessment (RN) Last Done: 08/05/20 13:21 Supervising Physician Co-Signing Physician Notes I personally examined the patient and verified all werner points of history and exam, discussed case, and agree with decision making with Dr Wells. feeling better, eating better, tolerating augmentin, wants to go home vitals noted nad heent nc at mmm breathing unlabored incisions c/d/i cholecystitis - now stable for home, finish augmentin, discussed diet otherwise as above Resident Activity Tracking Resident Involvement: Resident Care Provided Care Provided: Adult Hospital Medicine
--- NOTE | 2020-08-05 18:17 | Billing Data ---
Date of Service August 05, 2020 Coding Level of Care Code D/C Day Management <30 mins
== END 2020-08-05 14:40 | disposition home or self-care (01) | DRG 419 ==
LOC: ED 19:48 → SUATTDRO 23:43 → 2N 23:43